=== PATIENT | female | born 1960 | race African-American/Black ===

== ENCOUNTER 2019-05-20 10:43 | Emergency (ER) | payer OTHER ==
[~2019-05-20] VITALS: Ht 165.1 cm; Wt 95.3 kg
[~2019-05-20 10:43] MED LIST: ALBUTEROL SULF8.5 GM INH; ALPRAZOLAM ER0.5 M1 ORAL; CLARITIN10 M2 ORAL; COGENTIN1 MG PO; COMBIVENT2 PUFFS INH; DEBROX15 M1 RIGHT EAR; GENTAMICIN SULF15 G2 TOPIC; HALOPERIDOL0.5 MG ORAL; IBUPROFEN400 MG ORAL; IBUPROFEN600 MG ORAL; IBUPROFEN600 MG PO; KENALOG 0.1% CR15 GM APPLIC; MAALOX525 MG/11 PO; NAPHCON-A EYE D15 ML RIGHT EYE; QUETIAPINE FUMA25 MG ORAL; RISPERDAL0.25 MG ORAL; UNOBMED; [UNRECOGNIZED DRUG - REMARK]; benadryl
[2019-05-20 10:55] VITALS: BP 116/61
[2019-05-20] MEDS ORDERED: OMEPRAZOLE40 M1 ORAL (10:56)
[2019-05-20] MEDS ORDERED: IBUPROFEN600 MG ORAL (10:56)
[2019-05-20] MEDS ORDERED: TRAZODONE HCL150 MG ORAL (10:56)
[2019-05-20] MEDS ORDERED: HYDROCHLOROTHIA25 MG ORAL (10:56)
[2019-05-20] MEDS ORDERED: AMLODIPINE BESY10 MG ORAL (10:56)
[2019-05-20] MEDS ORDERED: ATORVASTATIN CA10 MG ORAL (10:56)
[2019-05-20] MEDS ORDERED: ZYPREXA10 MG ORAL (10:56)
[2019-05-20] MEDS ORDERED: ZETIA10 MG ORAL (10:56)
[2019-05-20] MEDS ORDERED: STOOL SOFTENER250 MG PO (10:56)
[2019-05-20] MEDS ORDERED: RISPERDAL1 MG PO (10:56)
[2019-05-20] MEDS ORDERED: LISINOPRIL10 MG ORAL (10:56)
[2019-05-20] MEDS ORDERED: OYSTER SHELL 51 EAC1 PO (10:56)
[2019-05-20 12:06] LABS: APPEARANCE,URINE CLEAR; BILIRUBIN, URINE NEGATIVE (NEGATIVE); COLOR,URINE PALE YELLOW; GLUCOSE, URINE (UA) NEGATIVE (NEGATIVE); HEMATOCRIT 20.1 % (37.0-47.0); HEMOGLOBIN 7.1 G/DL (12.0-16.0); KETONES,URINE NEGATIVE (NEGATIVE); LEUKOCYTE ESTERASE ,URINE NEGATIVE (NEGATIVE); MEAN CORPUSCULAR VOLUME 87 FL (80-99); NITRITE,URINE NEGATIVE (NEGATIVE); PH,URINE 6.5 (4.5-8.0); PLATELET COUNT 89 K/UL (150-450); PROTEIN,URINE NEGATIVE (NEGATIVE); RED BLOOD COUNT 2.32 M/UL (4.20-5.40); RED CELL DISTRIBUTION WIDTH 11.3 % (11.6-14.8); UROBILINOGEN,URINE NORMAL MG/DL (0.0-1.0); WHITE BLOOD COUNT 3.4 K/UL (4.8-10.8)
[2019-05-20 12:43] VITALS: BP 101/71
--- NOTE | 2019-05-20 12:50 | Diagnostic Imaging Report ---
Indication: Cough Technique: One view of the chest Comparison: 04/13/2013 Findings body habitus limits evaluation.: The patient is rotated to the right. The lungs and pleural spaces are clear. No significant interim change Impression: No acute process
[2019-05-20 13:17] LABS: ALANINE AMINOTRANSFERASE 11 U/L (12-78); ALBUMIN/GLOBULIN RATIO 0.8 (1.0-2.7); ALKALINE PHOSPHATASE 81 U/L (46-116); ANION GAP 5 mmol/L (5-15); ASPARTATE AMINO TRANSFERASE 19 U/L (15-37); BILIRUBIN,TOTAL 0.3 MG/DL (0.2-1.0); BLOOD UREA NITROGEN 5 mg/dL (7-18); CALCIUM 8.1 MG/DL (8.5-10.1); CARBON DIOXIDE 31 MMOL/L (21-32); CHLORIDE 101 MMOL/L (98-107); CKMB 1.2 NG/ML (0.0-3.6); CREATINE KINASE 101 U/L (26-308); CREATININE 0.8 MG/DL (0.55-1.30); POTASSIUM 3.1 MMOL/L (3.5-5.1); SODIUM 137 MMOL/L (136-145)
--- NOTE | 2019-05-20 14:18 | Diagnostic Imaging Report ---
Indications: Altered mental status Technique: Spiral acquisitions obtained through the brain. Angled axial and coronal 5 x 5 mm slices were reconstructed. Total dose length product 1300 mGycm. CTDI vol(s) 62 mGy. Dose reduction achieved using automated exposure control Comparison: None. Findings: There is slight image degradation due to motion artifact. No acute intracranial hemorrhage or edema, mass effect, nor midline shift. Normal adame-white differentiation. Normal size ventricles and extra axial CSF spaces. Intact calvarium. Visualized orbits and sinuses are unremarkable. Impression: Negative The CT scanner at [facility] is accredited by the [employer] and the scans are performed using protocols designed to limit radiation exposure to as low as reasonably achievable to attain images of sufficient resolution adequate for diagnostic evaluation.
--- NOTE | 2019-05-20 15:15 | Emergency Room Report ---
History of Present Illness General Chief Complaint: General Complaint Source: EMS (Michael Dickinson M.D.) Present Illness HPI 59-year-old female presenting with altered mental status. Patient history however usually alert oriented and ambulatory. Patient only alert to person, not time or place at this time. Unable to obtain further history due to mental status changes. (Michael Dickinson M.D.) Allergies: Coded Allergies: BENZTROPINE (Verified Allergy, Unknown, 09/10/15) PENICILLINS (Verified Allergy, Unknown, 08/24/15) Patient History PMH Narrative Schizophrenia, psychotic disorder (Michael Dickinson M.D.) Nursing Documentation-PMH Past Medical History Deferred: Pt Cognitively Impaired Hx Hypertension: Yes Hx Asthma: Yes Hx Seizures: Yes (Michael Dickinson M.D.) Review of Systems Narrative History limited to altered mental status. ROS limited due to altered mental status (Michael Dickinson M.D.) Physical Exam Vital Signs Date Time Temp Pulse Resp B/P (MAP) Pulse Ox O2 Delivery O2 Flow Rate FiO2 05/20/19 10:40 97.5 91 18 101/60 (74) 99 Room Air Sp02 EP Interpretation: reviewed, normal General Appearance: no apparent distress, alert, GCS 15, non-toxic Head: normocephalic, atraumatic Eyes: bilateral eye PERRL, bilateral eye EOMI ENT: hearing grossly normal, normal pharynx, no angioedema, normal voice Neck: full range of motion, supple/symm/no masses Respiratory: chest non-tender, lungs clear, normal breath sounds, speaking full sentences Cardiovascular #1: normal inspection, regular rate, rhythm Cardiovascular #2: 2+ radial (R), 2+ radial (L) Musculoskeletal: normal inspection, other - Moving all extremities spontaneously Neurologic: alert, other - Oriented to person, not to place or time (Michael Dickinson M.D.) Rectal: heme negative stool, other - [employer] Hermann Macias RN. (Jermaine Caba MD) Procedures Critical Care Time Critical Care Time Given the critical condition in which the patient arrived, the patient was immediately assessed by myself and the nurse, and cardiac monitoring initiated due to the potential for rapid decompensation of the patient's clinical condition. During the course of the patient's stay, I spent a considerable amount of time at the bedside performing serial re-evaluations of the patient's hemodynamic and clinical status because of the recognized potential threat to life or limb in this condition. I then had a chance to review not only all of the available current laboratory and radiographic studies obtained today, but I also reviewed old records available to me at the time. Additionally, any ancillary information available including [employer] records were reviewed. Sequential vital signs were obtained. Critical Care time of 36 minutes was performed exclusive of billable procedures. (Jermaine Caba MD) Medical Decision Making Diagnostic Impression: Primary Impression: AMS (altered mental status) Qualified Codes: R41.82 - Altered mental status, unspecified ER Course 59-year-old female with history of psychotic disorder and schizophrenia presents with altered mental status different from her baseline. Lab testing significant for anemia Head CT within normal limits Laboratory Tests Test 05/20/19 11:00 05/20/19 11:18 05/20/19 12:30 05/20/19 13:29 White Blood Count 3.4 K/UL (4.8-10.8) L Red Blood Count 2.32 M/UL (4.20-5.40) L Hemoglobin 7.1 G/DL (12.0-16.0) L Hematocrit 20.1 % (37.0-47.0) L Mean Corpuscular Volume 87 FL (80-99) Mean Corpuscular Hemoglobin 30.6 PG (27.0-31.0) Mean Corpuscular Hemoglobin Concent 35.2 G/DL (32.0-36.0) Red Cell Distribution Width 11.3 % (11.6-14.8) L Platelet Count 89 K/UL (150-450) L Mean Platelet Volume 5.6 FL (6.5-10.1) L Neutrophils (%) (Auto) % (45.0-75.0) Lymphocytes (%) (Auto) % (20.0-45.0) Monocytes (%) (Auto) % (1.0-10.0) Eosinophils (%) (Auto) % (0.0-3.0) Basophils (%) (Auto) % (0.0-2.0) Differential Total Cells Counted 100 Neutrophils % (Manual) 58 % (45-75) Lymphocytes % (Manual) 30 % (20-45) Monocytes % (Manual) 6 % (1-10) Eosinophils % (Manual) 5 % (0-3) H Basophils % (Manual) 1 % (0-2) Band Neutrophils 0 % (0-8) Platelet Estimate Decreased L Platelet Morphology Normal Hypochromasia 1+ Urine Color Pale yellow Urine Appearance Clear Urine pH 6.5 (4.5-8.0) Urine Specific [place] 1.005 (1.005-1.035) Urine Protein Negative (NEGATIVE) Urine Glucose (UA) Negative (NEGATIVE) Urine Ketones Negative (NEGATIVE) Urine Blood Negative (NEGATIVE) Urine Nitrite Negative (NEGATIVE) Urine Bilirubin Negative (NEGATIVE) Urine Urobilinogen Normal MG/DL (0.0-1.0) Urine Leukocyte Esterase Negative (NEGATIVE) Troponin I 0.027 ng/mL (0.000-0.056) Urine Opiates Screen Negative (NEGATIVE) Urine Barbiturates Screen Negative (NEGATIVE) Phencyclidine (PCP) Screen Negative (NEGATIVE) Urine Amphetamines Screen Negative (NEGATIVE) Urine Benzodiazepines Screen Negative (NEGATIVE) Urine Cocaine Screen Negative (NEGATIVE) Urine Marijuana (THC) Screen Negative (NEGATIVE) Sodium Level 137 MMOL/L (136-145) Potassium Level 3.1 MMOL/L (3.5-5.1) L Chloride Level 101 MMOL/L (98-107) Carbon Dioxide Level 31 MMOL/L (21-32) Anion Gap 5 mmol/L (5-15) Blood Urea Nitrogen 5 mg/dL (7-18) L Creatinine 0.8 MG/DL (0.55-1.30) Estimate Glomerular Filtration Rate > 60 mL/min (>60) Glucose Level 102 MG/DL (74-106) Calcium Level 8.1 MG/DL (8.5-10.1) L Total Bilirubin 0.3 MG/DL (0.2-1.0) Aspartate Amino Transferase (AST) 19 U/L (15-37) Alanine Aminotransferase (ALT) 11 U/L (12-78) L Alkaline Phosphatase 81 U/L (46-116) Total Creatine Kinase 101 U/L (26-308) Creatine Kinase MB 1.2 NG/ML (0.0-3.6) Creatine Kinase MB Relative Index 1.1 Pro-B-Type Natriuretic Peptide 71 pg/mL (0-125) Total Protein 6.9 G/DL (6.4-8.2) Albumin 3.0 G/DL (3.4-5.0) L Globulin 3.9 g/dL Albumin/Globulin Ratio 0.8 (1.0-2.7) L Lactic Acid Level 1.20 mmol/L (0.4-2.0) (Michael Dickinson M.D.) ER Course Reevaluation 3:43 PM, signout received from Dr. Dickinson. Hemoccult negative Reevaluation of the patient shows that she is now more with it, alert and oriented x3, consent was obtained for blood, patient will be transfused 1 unit here and be transferred to an outside hospital per her insurance previous hemoglobin was 12 now down to 7.1, patient denies any black tarry stools, acute bleeding unknown cause Patient does endorse feeling symptomatically lightheaded Reevaluation 5:32 PM, patient hemoglobin is actually normal blood Pradaxa counseled, patient has not been transfused yet, will transfer patient based on her altered mental status Laboratory Tests Test 05/20/19 11:00 05/20/19 11:18 05/20/19 12:30 05/20/19 13:29 White Blood Count 3.4 K/UL (4.8-10.8) L Red Blood Count 2.32 M/UL (4.20-5.40) L Hemoglobin 7.1 G/DL (12.0-16.0) L Hematocrit 20.1 % (37.0-47.0) L Mean Corpuscular Volume 87 FL (80-99) Mean Corpuscular Hemoglobin 30.6 PG (27.0-31.0) Mean Corpuscular Hemoglobin Concent 35.2 G/DL (32.0-36.0) Red Cell Distribution Width 11.3 % (11.6-14.8) L Platelet Count 89 K/UL (150-450) L Mean Platelet Volume 5.6 FL (6.5-10.1) L Neutrophils (%) (Auto) % (45.0-75.0) Lymphocytes (%) (Auto) % (20.0-45.0) Monocytes (%) (Auto) % (1.0-10.0) Eosinophils (%) (Auto) % (0.0-3.0) Basophils (%) (Auto) % (0.0-2.0) Differential Total Cells Counted 100 Neutrophils % (Manual) 58 % (45-75) Lymphocytes % (Manual) 30 % (20-45) Monocytes % (Manual) 6 % (1-10) Eosinophils % (Manual) 5 % (0-3) H Basophils % (Manual) 1 % (0-2) Band Neutrophils 0 % (0-8) Platelet Estimate Decreased L Platelet Morphology Normal Hypochromasia 1+ Urine Color Pale yellow Urine Appearance Clear Urine pH 6.5 (4.5-8.0) Urine Specific [place] 1.005 (1.005-1.035) Urine Protein Negative (NEGATIVE) Urine Glucose (UA) Negative (NEGATIVE) Urine Ketones Negative (NEGATIVE) Urine Blood Negative (NEGATIVE) Urine Nitrite Negative (NEGATIVE) Urine Bilirubin Negative (NEGATIVE) Urine Urobilinogen Normal MG/DL (0.0-1.0) Urine Leukocyte Esterase Negative (NEGATIVE) Troponin I 0.027 ng/mL (0.000-0.056) Urine Opiates Screen Negative (NEGATIVE) Urine Barbiturates Screen Negative (NEGATIVE) Phencyclidine (PCP) Screen Negative (NEGATIVE) Urine Amphetamines Screen Negative (NEGATIVE) Urine Benzodiazepines Screen Negative (NEGATIVE) Urine Cocaine Screen Negative (NEGATIVE) Urine Marijuana (THC) Screen Negative (NEGATIVE) Sodium Level 137 MMOL/L (136-145) Potassium Level 3.1 MMOL/L (3.5-5.1) L Chloride Level 101 MMOL/L (98-107) Carbon Dioxide Level 31 MMOL/L (21-32) Anion Gap 5 mmol/L (5-15) Blood Urea Nitrogen 5 mg/dL (7-18) L Creatinine 0.8 MG/DL (0.55-1.30) Estimate Glomerular Filtration Rate > 60 mL/min (>60) Glucose Level 102 MG/DL (74-106) Calcium Level 8.1 MG/DL (8.5-10.1) L Total Bilirubin 0.3 MG/DL (0.2-1.0) Aspartate Amino Transferase (AST) 19 U/L (15-37) Alanine Aminotransferase (ALT) 11 U/L (12-78) L Alkaline Phosphatase 81 U/L (46-116) Total Creatine Kinase 101 U/L (26-308) Creatine Kinase MB 1.2 NG/ML (0.0-3.6) Creatine Kinase MB Relative Index 1.1 Pro-B-Type Natriuretic Peptide 71 pg/mL (0-125) Total Protein 6.9 G/DL (6.4-8.2) Albumin 3.0 G/DL (3.4-5.0) L Globulin 3.9 g/dL Albumin/Globulin Ratio 0.8 (1.0-2.7) L Lactic Acid Level 1.20 mmol/L (0.4-2.0) (Jermaine Caba MD) EKG Diagnostic Results EP Interpretation: Normal sinus rhythm rate of 67 T wave inversions V5 (Michael Dickinson M.D.) Last Vital Signs Date Time Temp Pulse Resp B/P (MAP) Pulse Ox O2 Delivery O2 Flow Rate FiO2 05/20/19 12:43 96.9 79 18 101/71 100 Room Air (Michael Dickinson M.D.) Disposition: XFER SHT-TRM HOSP Condition: Serious Referrals: [facility],REFERRING (PCP) Michael Dickinson M.D. May 20, 2019 15:15 Jermaine Caba MD May 20, 2019 15:44
[2019-05-20 17:13] LABS: BASOPHILS % (AUTO) 0.9 % (0.0-2.0); EOSINOPHILS % (AUTO) 6.6 % (0.0-3.0); HEMATOCRIT 42.1 % (37.0-47.0); HEMOGLOBIN 14.9 G/DL (12.0-16.0); MEAN CORPUSCULAR VOLUME 85 FL (80-99); NEUTROPHILS % (AUTO) 51.5 % (45.0-75.0); PLATELET COUNT 196 K/UL (150-450); RED BLOOD COUNT 4.97 M/UL (4.20-5.40); RED CELL DISTRIBUTION WIDTH 11.5 % (11.6-14.8); WHITE BLOOD COUNT 6.3 K/UL (4.8-10.8)
[2019-05-20 19:22] VITALS: BP 105/72
[2019-05-20 19:59] VITALS: BP 110/72
--- NOTE | 2019-05-22 17:21 | Cardiology Report ---
APPROVED REPORT EKG Measurement Heart [id number] Normal sinus rhythm Cannot rule out Anterior infarct, age undetermined Abnormal ECG
== END 2019-05-20 20:00 | disposition short-term general hospital (02) ==
LOC: EDBD 10:43 → EMR 12:20
DX: R41.82 Altered mental status, unspecified (principal); Z88.0 Allergy status to penicillin; Z88.8 Allergy status to other drugs, medicaments and biological substances; G40.909 Epilepsy, unspecified, not intractable, without status epilepticus; I10 Essential (primary) hypertension; D64.9 Anemia, unspecified; R05 Cough
CPT/HCPCS: 36415; 70450; 71045; 80053; 80307; 81003; 82550; 82553; 83605; 83880; 84484; 85007; 85025; 86850; 86900; 86901; 86920; 87040; 93005; 96360; 96361; Z7502; 99291